=== PATIENT | male | born 1960 | race Caucasian/White ===

== ENCOUNTER 2016-07-21 19:49 | Emergency (ER) | payer SELFPAY | END 2016-07-21 22:04 | disposition home or self-care (01) | LOC: ED 19:49 | DX: Z04.3 Encounter for examination and observation following other accident (principal); F17.210 Nicotine dependence, cigarettes, uncomplicated; V86.59XA Driver of other special all-terrain or other off-road motor vehicle injured in nontraffic accident, initial encounter; Y99.8 Other external cause status ==